=== PATIENT | male | born 1995 | race African-American/Black ===

== ENCOUNTER 2020-08-18 15:25 | Emergency (ER) | payer SELFPAY ==
[~2020-08-18] VITALS: Ht 182.9 cm; Wt 80.0 kg
[2020-08-18 15:41] VITALS: BP 120/87
== END 2020-08-18 16:02 | disposition left against medical advice (07) ==
LOC: ER 15:25
DX: T50.7X1A Poisoning by analeptics and opioid receptor antagonists, accidental (unintentional), initial encounter (principal); Z00.00 Encounter for general adult medical examination without abnormal findings; Z53.21 Procedure and treatment not carried out due to patient leaving prior to being seen by health care provider; Y92.89 Other specified places as the place of occurrence of the external cause